=== PATIENT | female | born 1980 | race Caucasian/White ===

== ENCOUNTER 2020-07-10 16:59 | Emergency (ER) | payer MEDICAID ==
[~2020-07-10] VITALS: Ht 162.6 cm; Wt 105.5 kg
[2020-07-10 17:13] VITALS: BP 139/93; Ht 162.6 cm; Wt 105.5 kg
[2020-07-10] MEDS ORDERED: PROPRANOLOL HCL20 MG PO (17:14)
[2020-07-10] MEDS ORDERED: LYRICA75 MG PO (17:15)
[2020-07-10] MEDS ORDERED: ZYRTEC10 MG PO (17:15)
[2020-07-10] MEDS ORDERED: BUPROPION XL150 MG PO (17:15)
[2020-07-10] MEDS ORDERED: ZANAFLEX4 MG PO (17:16)
[2020-07-10] MEDS ORDERED: DICLOFENAC SODI50 MG PO (20:23)
[2020-07-10] MEDS ORDERED: HYDROCODON-ACE1 EA10 PO (20:23)
== END 2020-07-10 20:34 | disposition home or self-care (01) ==
LOC: D.ER 16:59
DX: S80.02XA Contusion of left knee, initial encounter (principal); W19.XXXA Unspecified fall, initial encounter; Y93.9 Activity, unspecified; Y92.9 Unspecified place or not applicable